=== PATIENT | female | born 2005 | race Caucasian/White ===

== ENCOUNTER 2024-12-21 03:59 | Emergency (ER) | payer MEDICAID ==
[~2024-12-21] VITALS: Ht 157.5 cm; Wt 68.0 kg
[2024-12-21 04:05] VITALS: TEMP 36.8; O2SAT 100
[2024-12-21 04:48] LABS: BASOPHILS % 0.5 % (0.0-2.0); EOSINOPHILS % 2.4 % (0.0-5.0); HEMATOCRIT. 35.4 % (36.0-48.0); HEMOGLOBIN. 11.8 g/dL (12.0-16.0); LYMPHOCYTES % 34.0 % (20.0-50.0); MEAN PLATELET VOLUME 8.0 fl (7.4-10.4); MONOCYTES % 10.6 % (2.0-8.0); NEUTROPHILS % 52.5 % (40.0-76.0); PLATELET 261 x1000/uL (130-400); RED BLOOD CELL COUNT 4.19 mill/uL (4.2-5.4); RED CELL DISTRIBUTION WIDTH 14.1 % (11.6-14.6)
[2024-12-21] MEDS: LORAZEPAM 1MG TABLET PO ONE (04:58)
[2024-12-21 05:02] LABS: CREATININE 0.6 mg/dL (0.6-1.0)
[2024-12-21 05:03] LABS: TROPONIN I HIGH SENSITIVITY < 4 ng/L (3.0-34); UREA NITROGEN BLOOD 10 mg/dL (9-23)
[2024-12-21 05:45] LABS: HCG SCREEN NEGATIVE
[2024-12-21 05:50] VITALS: BP 114/69; PULSE 86; RESP 16; O2SAT 100
== END 2024-12-21 05:55 | disposition home or self-care (01) ==
LOC: ER 03:59
DX: R00.2 Palpitations (principal); R07.89 Other chest pain
CPT/HCPCS: 36415; 71045; 80048; 84484; 84703; 85025; 85379; 93005; 99285

== ENCOUNTER 2025-01-28 16:26 | Emergency (ER) | payer MEDICAID ==
[~2025-01-28] VITALS: Ht 160 cm; Wt 73.0 kg
[2025-01-28 16:29] VITALS: O2SAT 100
[2025-01-28] MEDS: ACETAMINOPHEN 325MG TABLET PO ONE (17:07)
[2025-01-28] MEDS ORDERED: TOPUD MT (17:17)
[2025-01-28 17:22] VITALS: BP 125/76; PULSE 74; RESP 18; TEMP 36.7; O2SAT 100
== END 2025-01-28 19:04 | disposition home or self-care (01) ==
LOC: ER 16:29
DX: S60.229A Contusion of unspecified hand, initial encounter (principal); X58.XXXA Exposure to other specified factors, initial encounter; Y93.89 Activity, other specified; Y92.89 Other specified places as the place of occurrence of the external cause; Y99.8 Other external cause status
CPT/HCPCS: 99283; 73120; A6449